=== PATIENT | female | born 1930 | race Caucasian/White ===

== ENCOUNTER 2019-06-25 18:06 | Inpatient (IN) | payer MEDICARE ==
[~2019-06-25] VITALS: Ht 144.8 cm; Wt 78.0 kg
[2019-06-25] MEDS ORDERED: DEXT 5%/0.9% NACL 1,000 ML IV ONE (19:15)
[2019-06-25 20:43] LABS: CHLORIDE 111 mEq/L (98-107)
[2019-06-25 20:51] LABS: HEMATOCRIT. 25.4 % (36.0-48.0); HEMOGLOBIN. 8.1 g/dL (12.0-16.0); MEAN CORPUSCULAR HEMOGLOBIN 27.5 pg (28.0-32.0); MEAN CORPUSCULAR VOLUME 86.8 fL (81.0-99.0); MEAN PLATELET VOLUME 7.1 fl (7.4-10.4); PLATELET 264 x1000/uL (130-400); RED BLOOD CELL COUNT 2.92 mill/uL (4.2-5.4); RED CELL DISTRIBUTION WIDTH 17.6 % (11.6-14.6)
[2019-06-25 20:52] LABS: BETA HYDROXYBUTYRATE 0.1 mMol/L (0.0-0.3)
[2019-06-25] MEDS ORDERED: IPRATROPIUM/ALBUTEROL 0.5-3(2.5)MG/3ML NEB HHN ONE ×2 (21:00→22:30)
[2019-06-25 22:01] LABS: ATYPICAL LYMPHOCYTES 14; NUCLEATED RED BLOOD CELLS 1 /100 WBC; PLATELET ESTIMATE NORMAL
[2019-06-25] MEDS ORDERED: METHYLPREDNISOLONE SOD SUCC 40 MG/ML VIAL IV ONE (22:30)
[2019-06-25 22:39] LABS: CLARITY URINE CLOUDY (CLEAR); COLOR URINE YELLOW (YELLOW); KETONES URINE NEGATIVE (NEGATIVE); LEUKOCYTE ESTERASE URINE 2+ (NEGATIVE); NITRITE URINE NEGATIVE (NEGATIVE); OCCULT BLOOD URINE 3+ (NEGATIVE); PROTEIN URINE 4+ (NEGATIVE); SPECIFIC GRAVITY URINE 1.016 (1.005-1.030); UROBILINOGEN URINE 0.2 E.U./dL (0.2-1.0)
[2019-06-25] MEDS ORDERED: SULFAMETHOXAZOLE/TRIMETHOPRIM 800/160MG TABLET PO ONE (23:15)
[2019-06-26] VITALS (12 sets, daily range): BP systolic 134–166; BP diastolic 50–75
[2019-06-26] MEDS ORDERED: IPRATROPIUM/ALBUTEROL 0.5-3(2.5)MG/3ML NEB HHN ONE
[2019-06-26] MEDS ORDERED: FLUCONAZOLE 200MG/100ML PREMIX IV ONE
[2019-06-26] MEDS ORDERED: FLUCONAZOLE 200 MG/100ML BAG 100 ML IV NR (00:30)
[2019-06-26] MEDS ORDERED: FUROSEMIDE 20MG/2ML VIAL IVP ONE (01:00)
[2019-06-26 01:58] LABS: BG BASE EXCESS -9.5 mmol/L (-2.0-2.0); BG CARBOXYHEMOGLOBIN 0.1 % (0.5-1.5); BG FRACTION INSPIRED OXYGEN 36; BG METHEMOGLOBIN 0.1 % (0.0-1.5); BG OXYHEMOGLOBIN 91.8 % (94.0-97.0); BG PH 7.403 (7.350-7.450); BG PO2 67.1 mmHg (75.0-100.0); BG SAMPLE SITE LEFT RADIAL; BG TOTAL HEMOGLOBIN 8.1 g/dL (12.0-18.0); BG VENT MODE NASAL CANNULA
[2019-06-26] MEDS ORDERED: APIX2.5T PO (02:10)
[2019-06-26] MEDS ORDERED: ASPI-1158 PO (02:11)
[2019-06-26] MEDS ORDERED: ATEN-42 PO (02:20)
[2019-06-26] MEDS ORDERED: CYAN250014 PO (02:20)
[2019-06-26] MEDS ORDERED: FELO10TA PO (02:20)
[2019-06-26] MEDS ORDERED: CLOP75TA33 PO (02:20)
[2019-06-26] MEDS ORDERED: GLIM1TAB2 PO (02:22)
[2019-06-26] MEDS ORDERED: LOSA25TA26 PO (02:22)
[2019-06-26] MEDS ORDERED: MECL12.584 PO (02:22)
[2019-06-26] MEDS ORDERED: FURO20TA4 PO (02:22)
[2019-06-26] MEDS ORDERED: ATOR40TA70 PO (02:29)
[2019-06-26] MEDS ORDERED: RANI150C12 PO (02:29)
[2019-06-26] MEDS ORDERED: NITR0.4T49 SL (02:29)
[2019-06-26] MEDS ORDERED: POTA20TA82 PO (02:29)
[2019-06-26] MEDS ORDERED: CEFTRIAXONE 1 G PREMIX 50 ML IV SCH ×2 (03:45→08:00)
[2019-06-26] MEDS ORDERED: DEXTROSE 50% WATER 50ML SYRINGE IV PRN (03:45)
[2019-06-26 05:27] LABS: HEMATOCRIT. 22.8 % (36.0-48.0); HEMOGLOBIN. 7.3 g/dL (12.0-16.0); MEAN CORPUSCULAR HEMOGLOBIN 27.6 pg (28.0-32.0); MEAN CORPUSCULAR VOLUME 86.7 fL (81.0-99.0); MEAN PLATELET VOLUME 8.9 fl (7.4-10.4); PLATELET 201 x1000/uL (130-400); RED BLOOD CELL COUNT 2.63 mill/uL (4.2-5.4); RED CELL DISTRIBUTION WIDTH 18.1 % (11.6-14.6)
[2019-06-26] MEDS ORDERED: DEXT 5%/0.45% NACL 1000ML 1,000 ML IV SCH (05:30)
[2019-06-26] MEDS: BLOOD SUGAR DIAGNOSTIC STRIP TEST SCH ×4 (07:30→20:53)
[2019-06-26 08:53] LABS: BG CARBOXYHEMOGLOBIN 0.3 % (0.5-1.5); BG DEOXYHEMOGLOBIN 11.7 % (0.0-5.0); BG FRACTION INSPIRED OXYGEN 60; BG HCO3 ACT 14.2 mmol/L (22.0-26.0); BG METHEMOGLOBIN 0.5 % (0.0-1.5); BG OXYGEN SATURATION 88.2 % (92.0-98.5); BG OXYHEMOGLOBIN 87.5 % (94.0-97.0); BG PCO2 29.3 mmHg (35.0-45.0); BG PH 7.304 (7.350-7.450); BG PO2 62.1 mmHg (75.0-100.0); BG SAMPLE SITE RIGHT RADIAL; BG TOTAL HEMOGLOBIN 8.3 g/dL (12.0-18.0); BG VENT MODE MASK - SIMPLE
[2019-06-26] MEDS: APIXABAN 2.5 MG TABLET PO SCH ×2 (08:58→18:00)
[2019-06-26] MEDS: ATENOLOL 25MG TABLET PO SCH (08:59)
[2019-06-26] MEDS: AMLODIPINE 10MG TABLET PO SCH (08:59)
[2019-06-26] MEDS: LOSARTAN POTASSIUM 25 MG TABLET PO SCH (08:59)
[2019-06-26] MEDS: CLOPIDOGREL 75MG TABLET PO SCH (08:59)
[2019-06-26] MEDS ORDERED: FELODIPINE 10 MG PO SCH (09:00)
[2019-06-26] MEDS: INSULIN LISPRO 100 UNITS/ML SUBCUT SCH ×5 (09:43→20:59)
[2019-06-26] MEDS ORDERED: PIPERACILLIN/TAZ 2.25G PREMIX 50 ML IV SCH (10:15)
[2019-06-26 11:00] LABS: BG BASE EXCESS -8.6 mmol/L (-2.0-2.0); BG BILEVEL POS AIRWAY PRESSURE 15/5; BG CARBOXYHEMOGLOBIN 0.3 % (0.5-1.5); BG DEOXYHEMOGLOBIN 0.6 % (0.0-5.0); BG FRACTION INSPIRED OXYGEN 100; BG HCO3 ACT 15.7 mmol/L (22.0-26.0); BG METHEMOGLOBIN 0.3 % (0.0-1.5); BG OXYGEN SATURATION 99.4 % (92.0-98.5); BG OXYHEMOGLOBIN 98.8 % (94.0-97.0); BG PCO2 27.5 mmHg (35.0-45.0); BG PH 7.375 (7.350-7.450); BG PO2 229.7 mmHg (75.0-100.0); BG SAMPLE SITE RIGHT RADIAL; BG TOTAL HEMOGLOBIN 7.1 g/dL (12.0-18.0); BG VENT MODE MASK - BIPAP; BG VENT RATE 16 set
[2019-06-26] MEDS ORDERED: PIPERACILLIN/TAZOBACTAM 2.25 G in DEXTROSE 5% WATER 50 ML IV SCH (11:30)
[2019-06-26] MEDS: IPRATROPIUM/ALBUTEROL 0.5-3(2.5)MG/3ML NEB HHN SCH ×3 (11:42→21:15)
[2019-06-26] MEDS: PIPERACILLIN/TAZOBACTAM 2.25 G in DEXTROSE 5% WATER 50 ML IV SCH ×2 (11:52→20:53)
[2019-06-26] MEDS ORDERED: VANCOMYCIN 1500MG in DEXTROSE 5% WATER 250ML IV SCH (12:00)
[2019-06-26 13:07] LABS: PLATELET ESTIMATE N3
[2019-06-26] MEDS: FUROSEMIDE 40MG/4ML VIAL IVP SCH ×2 (13:41→20:53)
[2019-06-26] MEDS: ATORVASTATIN CALCIUM 40MG TABLET PO SCH (20:53)
[2019-06-26] MEDS ORDERED: MAGNESIUM/ALUMINUM HYDROXIDE/SIMETHICONE 30ML UDC PO PRN (22:30)
[2019-06-27] VITALS (17 sets, daily range): BP systolic 109–164; BP diastolic 50–118
[2019-06-27] MEDS: LORAZEPAM 2MG/ML CPJ IV PRN ×2 (00:01→10:05)
[2019-06-27] MEDS: IPRATROPIUM/ALBUTEROL 0.5-3(2.5)MG/3ML NEB HHN SCH ×7 (00:09→23:53)
[2019-06-27] MEDS: PIPERACILLIN/TAZOBACTAM 2.25 G in DEXTROSE 5% WATER 50 ML IV SCH ×3 (05:22→21:40)
[2019-06-27] MEDS: FUROSEMIDE 40MG/4ML VIAL IVP SCH ×3 (05:22→21:40)
[2019-06-27 06:10] LABS: MEAN CORPUSCULAR HEMOGLOBIN 27.7 pg (28.0-32.0); MEAN CORPUSCULAR VOLUME 86.8 fL (81.0-99.0); MEAN PLATELET VOLUME 7.7 fl (7.4-10.4); PLATELET 247 x1000/uL (130-400); RED BLOOD CELL COUNT 2.28 mill/uL (4.2-5.4); RED CELL DISTRIBUTION WIDTH 17.6 % (11.6-14.6)
[2019-06-27 06:33] LABS: T4 FREE 1.06 ng/dL (0.76-1.46)
[2019-06-27 07:09] LABS: BG BASE EXCESS -8.2 mmol/L (-2.0-2.0); BG BILEVEL POS AIRWAY PRESSURE 15/5; BG CARBOXYHEMOGLOBIN 0.3 % (0.5-1.5); BG DEOXYHEMOGLOBIN 0.6 % (0.0-5.0); BG HCO3 ACT 15.9 mmol/L (22.0-26.0); BG METHEMOGLOBIN 0.3 % (0.0-1.5); BG OXYGEN SATURATION 99.4 % (92.0-98.5); BG OXYHEMOGLOBIN 98.8 % (94.0-97.0); BG PCO2 26.5 mmHg (35.0-45.0); BG PH 7.395 (7.350-7.450); BG SAMPLE SITE RIGHT RADIAL; BG TOTAL HEMOGLOBIN 6.7 g/dL (12.0-18.0); BG VENT MODE MASK - BIPAP; BG VENT RATE 16 set
[2019-06-27] MEDS: BLOOD SUGAR DIAGNOSTIC STRIP TEST SCH ×3 (07:30→19:30)
[2019-06-27] MEDS: INSULIN LISPRO 100 UNITS/ML SUBCUT SCH ×4 (08:00→23:30)
[2019-06-27 08:10] LABS: HEMOGLOBIN. 6.3 g/dL (12.0-16.0)
[2019-06-27 08:11] LABS: HEMATOCRIT. 19.8 % (36.0-48.0)
[2019-06-27] MEDS: APIXABAN 2.5 MG TABLET PO SCH (09:45)
[2019-06-27] MEDS: CLOPIDOGREL 75MG TABLET PO SCH (09:45)
[2019-06-27] MEDS: LOSARTAN POTASSIUM 25 MG TABLET PO SCH (10:04)
[2019-06-27] MEDS: ATENOLOL 25MG TABLET PO SCH (10:05)
[2019-06-27] MEDS: AMLODIPINE 10MG TABLET PO SCH (10:05)
[2019-06-27] MEDS ORDERED: LIDOCAINE HCL 1% 20ML VIAL (Pyxis) INJ ONE (10:07)
[2019-06-27] MEDS ORDERED: VANCOMYCIN 750 MG PREMIX 150 ML IV SCH (11:00)
[2019-06-27 12:09] LABS: PLATELET ESTIMATE NORMAL
[2019-06-27] MEDS ORDERED: HALOPERIDOL LACTATE 5MG/ML VIAL IM PRN (12:30)
[2019-06-27] MEDS ORDERED: HALOPERIDOL LACTATE 5MG/ML VIAL IM NR (12:30)
[2019-06-27] MEDS: ATORVASTATIN CALCIUM 40MG TABLET PO SCH (21:40)
[2019-06-28] VITALS (19 sets, daily range): BP systolic 117–159; BP diastolic 51–99
[2019-06-28] MEDS: BLOOD SUGAR DIAGNOSTIC STRIP TEST SCH ×6 (00:11→22:20)
[2019-06-28] MEDS: INSULIN LISPRO 100 UNITS/ML SUBCUT SCH ×6 (03:30→22:21)
[2019-06-28] MEDS: IPRATROPIUM/ALBUTEROL 0.5-3(2.5)MG/3ML NEB HHN SCH ×5 (04:10→20:13)
[2019-06-28] MEDS: PIPERACILLIN/TAZOBACTAM 2.25 G in DEXTROSE 5% WATER 50 ML IV SCH ×3 (05:26→20:55)
[2019-06-28] MEDS: FUROSEMIDE 40MG/4ML VIAL IVP SCH ×3 (05:26→20:55)
[2019-06-28] MEDS: ATENOLOL 25MG TABLET PO SCH (08:29)
[2019-06-28] MEDS: LOSARTAN POTASSIUM 25 MG TABLET PO SCH (08:30)
[2019-06-28] MEDS: AMLODIPINE 10MG TABLET PO SCH (08:30)
[2019-06-28 09:11] LABS: IMMUNOGLOBULIN A 71 mg/dL (64-422); IMMUNOGLOBULIN G 346 mg/dL (700-1600); IMMUNOGLOBULIN M 328 mg/dL (26-217)
[2019-06-28 10:45] LABS: MEAN CORPUSCULAR HEMOGLOBIN 27.5 pg (28.0-32.0); MEAN CORPUSCULAR VOLUME 84.5 fL (81.0-99.0); RED BLOOD CELL COUNT 2.53 mill/uL (4.2-5.4); RED CELL DISTRIBUTION WIDTH 17.8 % (11.6-14.6)
[2019-06-28 10:48] LABS: BG BASE EXCESS -4.3 mmol/L (-2.0-2.0); BG CARBOXYHEMOGLOBIN 0.3 % (0.5-1.5); BG DEOXYHEMOGLOBIN 14.5 % (0.0-5.0); BG FRACTION INSPIRED OXYGEN 28; BG HCO3 ACT 18.9 mmol/L (22.0-26.0); BG METHEMOGLOBIN 0.3 % (0.0-1.5); BG OXYGEN SATURATION 85.4 % (92.0-98.5); BG OXYHEMOGLOBIN 84.9 % (94.0-97.0); BG PCO2 27.8 mmHg (35.0-45.0); BG PH 7.451 (7.350-7.450); BG PO2 50.4 mmHg (75.0-100.0); BG SAMPLE SITE RIGHT BRACHIAL; BG TOTAL HEMOGLOBIN 8.4 g/dL (12.0-18.0); BG VENT MODE NASAL CANNULA
[2019-06-28 10:56] LABS: HEMATOCRIT 21.4 % (36.0-48.0)
[2019-06-28 11:30] LABS: PLATELET 248 x1000/uL (130-400)
[2019-06-28] MEDS ORDERED: VANCOMYCIN 1 G PREMIX 200 ML IV SCH (13:00)
[2019-06-28] MEDS: ATORVASTATIN CALCIUM 40MG TABLET PO SCH (20:55)
[2019-06-28 21:32] LABS: HEMATOCRIT 26.6 % (36.0-48.0); HEMOGLOBIN 8.7 g/dL (12.0-16.0)
[2019-06-29] VITALS (10 sets, daily range): BP systolic 130–148; BP diastolic 54–78
[2019-06-29] MEDS: IPRATROPIUM/ALBUTEROL 0.5-3(2.5)MG/3ML NEB HHN SCH ×5 (00:28→16:40)
[2019-06-29] MEDS: BLOOD SUGAR DIAGNOSTIC STRIP TEST SCH ×3 (05:30→18:11)
[2019-06-29] MEDS: INSULIN LISPRO 100 UNITS/ML SUBCUT SCH ×3 (06:00→18:09)
[2019-06-29 06:47] LABS: HEMATOCRIT. 28.6 % (36.0-48.0); HEMOGLOBIN. 9.4 g/dL (12.0-16.0); MEAN CORPUSCULAR HEMOGLOBIN 26.8 pg (28.0-32.0); MEAN CORPUSCULAR VOLUME 81.6 fL (81.0-99.0); MEAN PLATELET VOLUME 7.4 fl (7.4-10.4); PLATELET 289 x1000/uL (130-400); RED CELL DISTRIBUTION WIDTH 17.9 % (11.6-14.6)
[2019-06-29] MEDS: FUROSEMIDE 40MG/4ML VIAL IVP SCH ×2 (06:50→17:08)
[2019-06-29] MEDS: PIPERACILLIN/TAZOBACTAM 2.25 G in DEXTROSE 5% WATER 50 ML IV SCH ×2 (06:50→17:17)
[2019-06-29] MEDS: AMLODIPINE 10MG TABLET PO SCH (08:34)
[2019-06-29] MEDS: LOSARTAN POTASSIUM 25 MG TABLET PO SCH (08:37)
[2019-06-29] MEDS: ATENOLOL 25MG TABLET PO SCH (08:37)
[2019-06-29] MEDS ORDERED: POTASSIUM CHLORIDE INJ 40 MEQ in DEXT 5% WATER 250 ML IV SCH (10:00)
[2019-06-29] MEDS ORDERED: VANCOMYCIN 750 MG PREMIX 150 ML IV SCH (11:00)
[2019-06-29 11:02] LABS: PLATELET ESTIMATE NORMAL
== END 2019-06-29 19:50 | disposition hospice, home (50) | DRG 637 ==
LOC: ER 18:06 → ENRESERV 06-26 00:08 → 5EST 06-26 01:19
PROVIDERS: ADMIT Internal Medicine; ATTEND Internal Medicine
PROC: 5A09357 Assistance with Respiratory Ventilation, Less than 24 Consecutive Hours, Continuous Positive Airway Pressure (ICD-10-PCS; 2019-06-26)
PROC: 02HV33Z Insertion of Infusion Device into Superior Vena Cava, Percutaneous Approach (ICD-10-PCS; principal; 2019-06-27)
PROC: B548ZZA Ultrasonography of Superior Vena Cava, Guidance (ICD-10-PCS; 2019-06-27)
PROC: 30233N1 Transfusion of Nonautologous Red Blood Cells into Peripheral Vein, Percutaneous Approach (ICD-10-PCS; 2019-06-27)
PROC: 5A09357 Assistance with Respiratory Ventilation, Less than 24 Consecutive Hours, Continuous Positive Airway Pressure (ICD-10-PCS; 2019-06-27)
PROC: 5A09357 Assistance with Respiratory Ventilation, Less than 24 Consecutive Hours, Continuous Positive Airway Pressure (ICD-10-PCS; 2019-06-28)
PROC: 5A09357 Assistance with Respiratory Ventilation, Less than 24 Consecutive Hours, Continuous Positive Airway Pressure (ICD-10-PCS; 2019-06-29)
DX: E11.649 Type 2 diabetes mellitus with hypoglycemia without coma (principal); G93.41 Metabolic encephalopathy; J18.9 Pneumonia, unspecified organism; I50.43 Acute on chronic combined systolic (congestive) and diastolic (congestive) heart failure; J96.90 Respiratory failure, unspecified, unspecified whether with hypoxia or hypercapnia; N39.0 Urinary tract infection, site not specified; E87.2 Acidosis; C91.10 Chronic lymphocytic leukemia of B-cell type not having achieved remission; I13.0 Hypertensive heart and chronic kidney disease with heart failure and stage 1 through stage 4 chronic kidney disease, or unspecified chronic kidney disease; E87.5 Hyperkalemia; N17.9 Acute kidney failure, unspecified; N18.9 Chronic kidney disease, unspecified; K57.30 Diverticulosis of large intestine without perforation or abscess without bleeding; I08.0 Rheumatic disorders of both mitral and aortic valves; D63.1 Anemia in chronic kidney disease; E11.22 Type 2 diabetes mellitus with diabetic chronic kidney disease; E78.00 Pure hypercholesterolemia, unspecified; E66.01 Morbid (severe) obesity due to excess calories; K76.89 Other specified diseases of liver; I48.91 Unspecified atrial fibrillation; Z66 Do not resuscitate; R80.9 Proteinuria, unspecified; Z51.5 Encounter for palliative care; I25.10 Atherosclerotic heart disease of native coronary artery without angina pectoris; I27.20 Pulmonary hypertension, unspecified; Z91.19 Patient's noncompliance with other medical treatment and regimen; I25.2 Old myocardial infarction; Z88.5 Allergy status to narcotic agent; Z90.49 Acquired absence of other specified parts of digestive tract; Z91.14 Patient's other noncompliance with medication regimen; Z86.73 Personal history of transient ischemic attack (TIA), and cerebral infarction without residual deficits; Z80.6 Family history of leukemia; Z87.01 Personal history of pneumonia (recurrent); Z68.37 Body mass index [BMI] 37.0-37.9, adult
CPT/HCPCS: 36415; 36600; 71045; 74176; 76937; 80048; 80061; 80202; 82010; 82375; 82784; 82805; 82962; 83010; 83036; 83605; 83615; 83880; 84132; 84145; 84439; 84443; 84484; 85014; 85018; 85027; 86334; 86850; 86900; 86920; 93005; 93306; 94640; 94660; 96361; 96365; 96375; 99291; C1725; C1769; J0696; J1450; J1630; J1815; J1940; J2060; J2543; J2920; J3370; J3480; J3490; J7040; J7042; J7050; J7060; J7620; P9016; A4315